=== PATIENT | female | born 1965 | race Asian ===

== ENCOUNTER → 2024-12-20 | Outpatient (CLI) | payer MEDICAID, SELFPAY ==
--- NOTE | 2024-12-20 10:28 | XR_ITS ---
Examination: CT abdomen and pelvis without contrast. Coronal 3-D reconstructions. Sagittal 2-D reconstructions. Date and time of exam:December 20, 2024 1116 hrs. Indications: Abdominal pain flank pain beginning 2021 CTDI: vol (mGy): 7.96 DLP: (mGycm): 300 Technique: Axial images of the abdomen have been obtained, 3 mm slice thickness Intravenous contrast material has not been administered. Low dose protocols were performed. One or more of the following dose reduction techniques were used; automated exposure control, adjustment of the mA and/or KV according to patient size, use of iterative reconstruction technique. Findings: Multiple liver cysts No gallstones Spleen not enlarged Bilateral 2 to 3 mm renal calculi, no hydronephrosis or ureteral calculi Normal appendix No bladder mass or bladder calculi Impression: Bilateral nonobstructing renal calculi No hydronephrosis or ureteral calculi Normal appendix No bladder mass or bladder calculi
== END | disposition home or self-care (01) ==
PROVIDERS: PCP Nurse Practitioner Family; Referring Provider Surgery; Visit Provider Surgery
DX: N20.0 Calculus of kidney (principal)
CPT/HCPCS: 74176